=== PATIENT | male | born 1985 | race American Indian/Alaskan Native ===

== ENCOUNTER 2021-02-07 14:25 | Emergency (ER) | payer BC ==
[~2021-02-07] VITALS: Ht 182.9 cm; Wt 87.5 kg
[2021-02-08] MEDS ORDERED: Ocuflox5 ML BOTHEYES (17:10)
[2021-02-08] MEDS ORDERED: ONDA4ODT MM (17:13)
== END 2021-02-07 15:36 | disposition home or self-care (01) ==
LOC: ER 14:25
DX: H11.31 Conjunctival hemorrhage, right eye (principal)
CPT/HCPCS: 82947; 99283

== ENCOUNTER 2021-02-08 15:19 | Emergency (ER) | payer BC ==
[~2021-02-08] VITALS: Ht 182.9 cm; Wt 88.0 kg
[2021-02-08] MEDS ORDERED: Ocuflox5 ML BOTHEYES (17:10)
[2021-02-08] MEDS ORDERED: ONDA4ODT MM (17:13)
== END 2021-02-08 17:23 | disposition home or self-care (01) ==
LOC: ER 15:19
DX: H11.31 Conjunctival hemorrhage, right eye (principal)
CPT/HCPCS: 99282; A9270

== ENCOUNTER 2025-03-10 13:13 | Emergency (ER) | payer BC ==
[~2025-03-10] VITALS: Ht 182.9 cm; Wt 83.9 kg
[~2025-03-10 13:13] MED LIST: ONDA4ODT MM; Ocuflox5 ML BOTHEYES
[2025-03-10] MEDS ORDERED: Ketorolac Tromethamine 15mg Vial IM ONE (13:20)
[2025-03-10 15:34] LABS: BASOPHILS ABSOLUTE AUTO 0.07 K/mm3 (0.00-0.23); BASOPHILS PERCENT AUTO 1 % (0-2); EOSINOPHILS ABSOLUTE AUTO 0.32 K/mm3 (0.00-0.68); EOSINOPHILS PERCENT AUTO 3 % (0-6); Hematocrit 44.5 % (37.0-53.0); Hemoglobin 15.5 g/dL (13.5-17.5); IMMATURE GRAN ABSOLUTE AUTO 0.02 K/mm3 (0.00-0.10); IMMATURE GRAN PERCENT AUTO 0 % (0-1); LYMPHOCYTES ABSOLUTE AUTO 2.11 K/mm3 (0.84-5.20); LYMPHOCYTES PERCENT AUTO 23 % (21-46); MONOCYTES ABSOLUTE AUTO 0.81 K/mm3 (0.16-1.47); MONOCYTES PERCENT AUTO 9 % (4-13); Mean Corpuscular HGB 30.3 pg (26.0-34.0); Mean Corpuscular HGB Conc 34.8 g/dL (31.5-36.5); Mean Corpuscular Volume 87 fL (80-100); NEUTROPHILS ABSOLUTE AUTO 6.03 K/mm3 (1.96-9.15); NEUTROPHILS PERCENT AUTO 65 % (41-73); Platelet Count 325 K/mm3 (150-400); RDW Standard Deviation 38.6 fL (35.1-46.3); Red Blood Cell Count 5.11 M/mm3 (4.30-5.90); White Blood Cell Count 9.36 K/mm3 (4.00-11.30)
[2025-03-10 15:53] LABS: Albumin, Blood 3.9 g/dL (3.4-5.0); Albumin/Globulin Ratio 1.4 (0.8-1.8); Bilirubin, Total 0.4 mg/dL (0.1-1.0); Bun/Creatinine Ratio 18.4 (12.0-20.0); Calcium, Blood 8.5 mg/dL (8.5-10.1); Creatinine, Blood 0.98 mg/dL (0.60-1.20); Globulin, Blood 2.7 g/dL (2.2-4.0); Potassium, Blood 4.2 mmol/L (3.5-5.5); Total Protein, Blood 6.6 g/dL (6.4-8.2)
[2025-03-10 16:15] VITALS: BP 124/76
== END 2025-03-10 16:20 | disposition home or self-care (01) ==
LOC: ER 13:13
PROVIDERS: Physician Assistant
DX: M79.602 Pain in left arm (principal); Z59.89 Other problems related to housing and economic circumstances
CPT/HCPCS: 80053; 84484; 85025; 93005; 93010; 96372; 99283-25; J1885

== ENCOUNTER 2025-04-29 11:37 | Emergency (ER) | payer BC ==
[~2025-04-29] VITALS: Ht 182.9 cm; Wt 83.9 kg
[2025-04-29 16:05] VITALS: BP 117/71
== END 2025-04-29 17:13 | disposition home or self-care (01) ==
LOC: ER 11:37
DX: S86.111A Strain of other muscle(s) and tendon(s) of posterior muscle group at lower leg level, right leg, initial encounter (principal); X58.XXXA Exposure to other specified factors, initial encounter; Y93.64 Activity, baseball
CPT/HCPCS: 73600; 76882; 99284-25